=== PATIENT | male | born 1995 | race Caucasian/White ===

== ENCOUNTER 2018-08-14 21:04 | Emergency (ER) | payer OTHER ==
[2018-08-14] MEDS ORDERED: ACETAMINOPHEN 325 MG TAB PO ONE (21:23)
--- NOTE | 2018-08-14 21:37 | EDPHY ---
H & P Stated Complaint: "T 102, ACHINESS, SORE THROAT" X 1 DAY Time Seen by Provider: 08/14/18 21:22 HPI/ROS: CHIEF COMPLAINT: Fever, sore throat HISTORY OF PRESENT ILLNESS: 23-year-old male presents with a 1 day history of fever and sore throat. Onset of fever and chills last night, unable to sleep because of shaking chills. Onset of moderate sore throat, myalgias and headache today. Seen at clinic this morning. Rapid strep and influenza negative. Given a prescription for Zithromax. Took Tylenol 2 hr ago and now feels better. Mild sore throat, myalgias and mild headache. Here because of concern for meningitis. Feels dehydrated, tolerating oral fluids well. No vomiting or diarrhea. REVIEW OF SYSTEMS: complete 10 point ROS reviewed and is negative except for the noted elements in the HPI Source: Patient - Personal History Current Tetanus Diphtheria and Acellular Pertussis (TDAP): Yes - Medical/Surgical History Hx Asthma: No Hx Chronic Respiratory Disease: No Hx Diabetes: No Hx Cardiac Disease: No Hx Renal Disease: No Hx Cirrhosis: No Hx Alcoholism: No Hx HIV/AIDS: No Hx Splenectomy or Spleen Trauma: No Other PMH: DENIES - Social History Smoking Status: Current some day smoker Alcohol Use: Sober Additional Social History: Student at [employer] Fully vaccinated - Physical Exam Exam: General Appearance: Alert, pleasant and smiling, nontoxic Eyes: Pupils equal and round, no conjunctival pallor or injection ENT, Mouth: Mucous membranes moist, pharyngeal erythema Neck: Normal inspection, supple Respiratory: Lungs are clear to auscultation Cardiovascular: Regular tachycardia Gastrointestinal: Abdomen is soft and nontender Neurological: Alert, oriented x3, cranial nerves II through XII intact, motor 5 /5, sensory intact to light touch, normal gait Skin: Warm and dry, no rash Extremities: Normal inspection Psychiatric: Mood and affect normal Constitutional: Initial Vital Signs Temperature (C) 37.2 C 08/14/18 21:16 Heart Rate 138 H 08/14/18 21:16 Respiratory Rate 20 08/14/18 21:16 Blood Pressure 130/89 H 08/14/18 21:16 O2 Sat (%) 95 08/14/18 21:16 O2 Delivery Mode Room Air Allergies/Adverse Reactions: No Known Allergies Allergy (Unverified 08/14/18 21:15) Home Medications: Medication Instructions Recorded NK [No Known Home Meds] 08/14/18 Medical Decision Making ED Course/Re-evaluation: This patient presents with a flu-like illness and dehydration. Strep and influenza negative prior to arrival. I do not suspect meningitis in this patient. He is well-appearing, with a mild headache. HR 136 on arrival, c/w dehydration. IV normal saline 2 L and Toradol 30 mg IV given. 10:50am: feels much better after IVF and Toradol. HR 90. Warning signs discussed. Encouraged d/c zithromax, as sx c/w viral syndrome. Differential Diagnosis: Differential diagnosis includes but is not limited to pneumonia, otitis media, peritonsillar abscess, retropharyngeal abscess, meningitis. - Data Points Medications Given: Discontinued Medications Sodium Chloride (Ns) 1,000 mls @ 0 mls/hr IV EDNOW ONE; Wide Open PRN Reason: Protocol Stop: 08/14/18 22:02 Last Admin: 08/14/18 22:13 Dose: 1,000 mls Sodium Chloride (Ns) 1,000 mls @ 0 mls/hr IV EDNOW ONE; Wide Open PRN Reason: Protocol Stop: 08/14/18 22:02 Last Admin: 08/14/18 22:14 Dose: 1,000 mls Ketorolac Tromethamine (Toradol) 30 mg IVP EDNOW ONE Stop: 08/14/18 22:02 Last Admin: 08/14/18 22:14 Dose: 30 mg Departure - Departure Disposition: Home, Routine, Self-Care Clinical Impression: Viral syndrome Condition: Good Instructions: Viral Syndrome (ED) Additional Instructions: Alternate Tylenol and ibuprofen every 3 hr around the clock for fever control. Drink plenty of fluids. Return for worsening symptoms or any concerns. Referrals: Alla Aguila MD [[facility] Primary Care Provider] - As per Instructions Stand Alone Forms: Work Excuse
[2018-08-14] MEDS ORDERED: KETOROLAC 30 MG/1 ML SDV IVP ONE (22:01)
[2018-08-14] MEDS ORDERED: NS 1,000 ML IV ONE ×2 (22:01)
[2018-08-14 23:19] VITALS: BP 135/86
== END 2018-08-14 23:23 | disposition home or self-care (01) ==
DX: B34.9 Viral infection, unspecified (principal); E86.9 Volume depletion, unspecified; M79.10 Myalgia, unspecified site; R51 Headache; F17.200 Nicotine dependence, unspecified, uncomplicated
CPT/HCPCS: 96374; J1885